=== PATIENT | female | born 1975 | race Hispanic/Latino ===

== ENCOUNTER → 2017-07-24 | Day surgery (SDC) | payer BC, OTHER ==
[~2017-07-24] MED LIST: BICITRA PO; FENTANYL CITRATE/PF 100MCG/2 ML INJ ONE; GAVISCON PO; LIDOCAINE HCL 2% LOCAL INJ 5 ML SDV VIAL INJ ONE; MIDAZOLAM HCL 2 MG/2 ML VIAL ONE; OMEPRAZOLE20 MG PO; ONDANSETRON HCL INJ 2 MG/ML VIAL ONE; PRILOSEC OTC20 MG PO; PROPOFOL IV EMULSION 10 MG/ML 20 ML VIAL ONE; PROPOFOL IV EMULSION 10 MG/ML 50 ML VIAL ONE; ZEGERID 40 MG1 EACH PO
== END | disposition home or self-care (01) ==
LOC: OR 06:00
PROVIDERS: ATTEND Internal Medicine Gastroenterology
DX: K59.00 Constipation, unspecified (principal); K29.50 Unspecified chronic gastritis without bleeding; K21.0 Gastro-esophageal reflux disease with esophagitis; K58.9 Irritable bowel syndrome, unspecified; K57.30 Diverticulosis of large intestine without perforation or abscess without bleeding; K64.8 Other hemorrhoids; R06.83 Snoring; E66.9 Obesity, unspecified; Z68.35 Body mass index [BMI] 35.0-35.9, adult
CPT/HCPCS: 36415; 43239; 45378; 84702; J2001; J2250; J2405

== ENCOUNTER 2019-02-17 15:30 | Outpatient (RCR) | payer BC, OTHER ==
[~2019-02-17 15:30] MED LIST changes: -FENTANYL CITRATE/PF 100MCG/2 ML INJ ONE; -LIDOCAINE HCL 2% LOCAL INJ 5 ML SDV VIAL INJ ONE; -MIDAZOLAM HCL 2 MG/2 ML VIAL ONE; -ONDANSETRON HCL INJ 2 MG/ML VIAL ONE; -PROPOFOL IV EMULSION 10 MG/ML 20 ML VIAL ONE; -PROPOFOL IV EMULSION 10 MG/ML 50 ML VIAL ONE
== END 2019-02-22 ==
LOC: PT 15:30
PROVIDERS: ATTEND Specialist
DX: S83.272A Complex tear of lateral meniscus, current injury, left knee, initial encounter (principal); M25.562 Pain in left knee; M62.81 Muscle weakness (generalized)

== ENCOUNTER → 2019-03-25 | Outpatient (RCR) | payer OTHER | LOC: PT 02-24 16:04 | PROVIDERS: ATTEND Specialist | DX: S83.272A Complex tear of lateral meniscus, current injury, left knee, initial encounter (principal) ==

== ENCOUNTER → 2020-03-28 | Day surgery (SDC) | payer OTHER ==
[~2020-03-28] MED LIST changes: +CEFAZOLIN SOD 1 GM/NS 50ML 50 ML IV ONE; +DEXAMETHASONE SOD PHOS INJ 4 MG/ML VIAL ONE; +FENTANYL CITRATE/PF 100MCG/2 ML INJ ONE; +KETOROLAC TROMETHAMINE 30 MG/ML VIAL ONE; +LIDOCAINE HCL 2% LOCAL INJ 5 ML SDV VIAL INJ ONE; +MIDAZOLAM HCL 2 MG/2 ML VIAL ONE; +ONDANSETRON HCL INJ 2MG/ML 2ML 2 MG/ML VIAL ONE; +PROPOFOL IV EMULSION 10 MG/ML 20 ML VIAL ONE; +SCOPOLAMINE 1.5 MG PATCH ONE; +SEVOFLURANE INHAL SOLN 250 ML PEN BTL ONE; +ZEGERID 20 MG1 EACH PO; +[UNRECOGNIZED DRUG - OTHER] PO
[2020-03-28 10:30] VITALS: BP 140/85
--- NOTE | 2020-03-28 11:25 | Operative Report ---
DATE OF PROCEDURE: 03/28/2020 SURGEON: Ben Contreras MD KIER DRIER: Josh Morales, certified PA. PREOPERATIVE DIAGNOSIS: Left knee lateral meniscal tear. POSTOPERATIVE DIAGNOSES: 1. Left knee lateral meniscal tear. 2. 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 PROCEDURE: Left knee arthroscopy, partial lateral meniscectomy, chondroplasty of the patella. INDICATIONS: The patient is a 44-year-old lady who has a long history of pain in her left knee. Her clinic exam and MRI are consistent with a lateral meniscal tear. The findings and options have been discussed. She feels that she has failed conservative management and would like to proceed with arthroscopic intervention. The risks and benefits have all been discussed. She states she understands and wishes to proceed. DESCRIPTION OF PROCEDURE: The patient was brought to the operating room and placed under general anesthetic. Her left lower extremity was prepped and draped in a sterile manner. A preoperative time-out was performed. The extremity had been exsanguinated and a proximal tourniquet was inflated to 300 mmHg. Standard arthroscopy portals were established. The knee was insufflated with sterile saline and systematically inspected. Immediately evident was some grade 2 chondromalacia of the undersurface of the patella. The medial and lateral gutters were inspected and were unremarkable. The trochlear groove was unremarkable. The medial compartment was inspected and probed. The articular surfaces and meniscus were all normal. The cruciate ligaments were normal. There was a complex tear of the midportion of the lateral meniscus. The articular surfaces were otherwise well preserved. The knee was fairly tight. A combination of biting forceps and a mechanical shaver were used to debride the lateral meniscal tear back to a stable margin. Before and after photographs were taken. A gentle chondroplasty was then performed of the apex of the undersurface of the patella. All unstable margins were removed. The knee was thoroughly irrigated and the arthroscopic instruments were removed. The portal incisions were closed with nylon stitches. A sterile bandage was applied. There was no blood loss and all needle and sponge counts were correct. Ben Contreras MD DR/GIOVANNY /[id number]
== END | disposition home or self-care (01) ==
LOC: OR 07:10
PROVIDERS: ATTEND Specialist
DX: S83.272A Complex tear of lateral meniscus, current injury, left knee, initial encounter (principal); M22.42 Chondromalacia patellae, left knee; K21.9 Gastro-esophageal reflux disease without esophagitis; I49.3 Ventricular premature depolarization; F41.9 Anxiety disorder, unspecified; X58.XXXA Exposure to other specified factors, initial encounter; Z01.812 Encounter for preprocedural laboratory examination; Z11.59 Encounter for screening for other viral diseases; Z68.36 Body mass index [BMI] 36.0-36.9, adult
CPT/HCPCS: 29881; 81025; 93005; J0690; J1100; J1885; J2001; J2250; J2405; J2704; J3010; U0002

== ENCOUNTER → 2020-04-24 | Outpatient (RCR) | payer OTHER ==
[~2020-04-24] MED LIST changes: -CEFAZOLIN SOD 1 GM/NS 50ML 50 ML IV ONE; -DEXAMETHASONE SOD PHOS INJ 4 MG/ML VIAL ONE; -FENTANYL CITRATE/PF 100MCG/2 ML INJ ONE; -KETOROLAC TROMETHAMINE 30 MG/ML VIAL ONE; -LIDOCAINE HCL 2% LOCAL INJ 5 ML SDV VIAL INJ ONE; -MIDAZOLAM HCL 2 MG/2 ML VIAL ONE; -ONDANSETRON HCL INJ 2MG/ML 2ML 2 MG/ML VIAL ONE; -PROPOFOL IV EMULSION 10 MG/ML 20 ML VIAL ONE; -SCOPOLAMINE 1.5 MG PATCH ONE; -SEVOFLURANE INHAL SOLN 250 ML PEN BTL ONE
== END ==
LOC: PT 04-13 10:51
PROVIDERS: ATTEND Specialist
DX: M25.562 Pain in left knee (principal); M25.662 Stiffness of left knee, not elsewhere classified; M25.462 Effusion, left knee; M62.81 Muscle weakness (generalized)
CPT/HCPCS: 97010 ×3; 97110 ×5; 97162; G0283 ×2

== ENCOUNTER 2020-05-03 10:00 | Outpatient (RCR) | payer OTHER | END 2020-05-25 | LOC: PT 10:00 | PROVIDERS: ATTEND Specialist | DX: M25.562 Pain in left knee (principal); M25.662 Stiffness of left knee, not elsewhere classified; M25.462 Effusion, left knee; M62.81 Muscle weakness (generalized) | CPT/HCPCS: 97110 ×4; G0283 ×4 ==

== ENCOUNTER 2024-08-16 01:39 | Emergency (ER) | payer SELFPAY ==
[~2024-08-16] VITALS: Ht 162.6 cm; Wt 113.4 kg
[2024-08-16 01:45] VITALS: PULSE 97; RESP 18; TEMP 98.3
[2024-08-16] MEDS ORDERED: CIPROFLOX-DEXA7.5 ML EACH EAR (02:05)
[2024-08-16 02:10] VITALS: BP 167/96; PULSE 94; RESP 18; TEMP 98.6; O2SAT 96
== END 2024-08-16 02:10 | disposition home or self-care (01) ==
LOC: FSED 02:00
DX: H60.91 Unspecified otitis externa, right ear (principal); K21.9 Gastro-esophageal reflux disease without esophagitis
CPT/HCPCS: 99282